=== PATIENT | male | born 1975 | race Caucasian/White ===

== ENCOUNTER 2016-08-31 14:11 | Emergency (ER) | payer BC, OTHER ==
[~2016-08-31] VITALS: Ht 172.7 cm; Wt 106.6 kg
[2016-08-31] MEDS ORDERED: SUBO8MIS SL (14:22)
[2016-08-31] MEDS ORDERED: OMEP40CA2 PO (14:22)
[2016-08-31 14:24] VITALS: BP 132/76
[2016-08-31] MEDS ORDERED: KETOROLAC 60 MG/2 ML VIAL (J1885) IM ONE (14:45)
--- NOTE | 2016-08-31 18:33 | REP ---
Left TIB-fib series: Four views: History: Injury in a fall. Findings: Four views of the left tibia and fibula demonstrate normal bones joints and soft tissues. No fracture or subluxation seen. Impression: Negative left TIB-fib views. Signed by Renato Singh MD 09/01/2016 08:06 A
--- NOTE | 2016-08-31 18:33 | REP ---
Left knee series: Five views: History: Left knee pain. Findings: Five views of the left knee demonstrate normal bones, joints and soft tissues. No fracture or subluxation is seen. Impression: No fracture noted. Signed by Renato Singh MD 09/01/2016 08:05 A
[2016-09-01] MEDS ORDERED: TRAM50TA2 PO (12:26)
== END 2016-08-31 16:21 | disposition home or self-care (01) ==
LOC: EDBD 14:11 → M ED 14:48
DX: S83.92XA Sprain of unspecified site of left knee, initial encounter (principal); W13.2XXA Fall from, out of or through roof, initial encounter; Y93.H9 Activity, other involving exterior property and land maintenance, building and construction; Y93.89 Activity, other specified; Y99.8 Other external cause status; F19.20 Other psychoactive substance dependence, uncomplicated; F17.200 Nicotine dependence, unspecified, uncomplicated; Z79.891 Long term (current) use of opiate analgesic; Z79.899 Other long term (current) drug therapy
CPT/HCPCS: 73564; 73590; 96372; 99282; J1885

== ENCOUNTER 2016-09-01 12:08 | Emergency (ER) | payer OTHER ==
[~2016-09-01] VITALS: Ht 172.7 cm; Wt 108.9 kg
[~2016-09-01 12:08] MED LIST: OMEP40CA2 PO; SUBO8MIS SL
[2016-09-01 12:10] VITALS: BP 130/70
[2016-09-01] MEDS ORDERED: TRAM50TA2 PO (12:26)
[2016-09-01] MEDS ORDERED: traMADol 50 MG TAB PO ONE (12:30)
== END 2016-09-01 12:54 | disposition home or self-care (01) ==
LOC: M ED 12:44
DX: S83.92XD Sprain of unspecified site of left knee, subsequent encounter (principal); W13.2XXD Fall from, out of or through roof, subsequent encounter; F11.21 Opioid dependence, in remission; Z79.899 Other long term (current) drug therapy

== ENCOUNTER → 2019-09-21 | Outpatient (REF) | payer OTHER ==
[~2019-09-21] MED LIST changes: -OMEP40CA2 PO; +OMEP40CA97 PO; +TRAM50TA2 PO
== END ==
LOC: M SMT 14:59
PROVIDERS: ATTEND Urology
DX: Z30.2 Encounter for sterilization (principal)

== ENCOUNTER → 2023-02-23 | Outpatient (CLI) | payer OTHER ==
[~2023-02-23] MED LIST changes: +NICO21PAT TD; +OMEP40CA4 PO; -OMEP40CA97 PO; +PERCOCET PO
== END ==
LOC: M RAD 02-17 09:23
PROVIDERS: ATTEND Nurse Practitioner Family
DX: J86.9 Pyothorax without fistula (principal); R91.8 Other nonspecific abnormal finding of lung field